=== PATIENT | female | born 1990 | race Hispanic/Latino ===

== ENCOUNTER 2018-06-10 23:15 | Emergency (ER) | payer MEDICAID ==
[2018-06-11] MEDS ORDERED: ATIVAN ONE (02:49)
[2018-06-11] MEDS ORDERED: ATIVAN PO ONE (02:55)
[2018-06-11] MEDS ORDERED: NORMODYNE IV ONE (02:56)
[2018-06-11] MEDS ORDERED: INDERAL PO ONE (02:57)
--- NOTE | 2018-06-11 03:05 | Emergency Department Report ---
HPI - General Chief Complaint: Abdominal Pain Time Seen by Provider: 06/11/18 02:52 - HPI HPI: The patient is a 27-year-old female presents for evaluation of abdominal pain and vaginal discharge. The patient reports 1 day of crampy in quality lower abdominal pain, mild in severity, exacerbated of urination, and associated with thick white vaginal discharge and dysuria. The patient denies fever, chills, night sweats, diarrhea, blood in the stool, dark tarry stool, dysuria, hematuria , flank pain, inability to pass flatus. ED Past Medical Hx - Past Medical History Previous Medical History?: No Additional medical history: denies - Surgical History Past Surgical History?: No Additional Surgical History: denies - Social History Smoking Status: Heavy Tobacco Smoker Substance Use Type: Alcohol - Medications Home Medications: Home Medications Medication Instructions Recorded Confirmed Last Taken Type HYDROcodone/APAP 5-325 [[place] 1 each PO Q6HR PRN #10 tablet 05/01/14 06/11/18 Unknown Rx 5/325 mg] Cephalexin [Keflex] 500 mg PO Q6HR #20 capsule 06/11/18 Unknown Rx Fluconazole [Diflucan TAB] 150 mg PO ONCE #1 tablet 06/11/18 Unknown Rx Miconazole/Cleanser 17 On [place]ipe 1 each VG QDAY #1 kit 06/11/18 Unknown Rx [Monistat 3 Combo Pack] metroNIDAZOLE [Flagyl] 500 mg PO Q12HR #14 tab 06/11/18 Unknown Rx ED Review of Systems ROS: Stated complaint: PAINFUL URINATION Other details as noted in HPI Constitutional: denies: fever ENT: denies: throat or neck pain Respiratory: denies: cough, shortness of breath Cardiovascular: denies: chest pain Endocrine: denies unexplained weight loss or gain Gastrointestinal: reports abdominal pain, nausea Genitourinary: reports vd and: dysuria Musculoskeletal: denies: leg swelling Skin: denies: rash Neurological: denies: headache Hematological/Lymphatic: denies: easy bleeding or easy bruising Psych: denies sadness or hopelessness Physical Exam - Physical Exam Vital Signs: Vital Signs 06/11/18 06/11/18 00:57 03:02 Temperature 98.9 F 97.2 F L Pulse Rate 111 H 98 H Respiratory 18 18 Rate Blood Pressure 152/95 Blood Pressure 114/82 [Left] O2 Sat by Pulse 95 97 Oximetry Physical Exam: General: well-nourished, well-developed, no acute distress Head: Normocephalic, atraumatic Eyes: normal sclera ENT: Mucous membranes are pale and dry Neck: trachea midline, neck supple, No neck stiffness, no cervical adenopathy Respiratory: Breath sounds equal bilaterally, no wheezing, rales, or rhonchi Cardio: S1 and S2 present, no murmurs, rubs, gallops, capillary refill is delayed Abdomen: Normoactive bowel sounds, soft abdomen, suprapubic tenderness to palpation present, no rigidity, no guarding or rebound tenderness Musc: No pitting edema Skin: No rash Neuro: Alert oriented 3, normal cognition, no facial drooping, normal speech Psych: Stat affect, depressed mood, poor insight, paranoid, although no suicidal or homicidal ideations, no hallucinations ED Course Vital Signs 06/11/18 06/11/18 00:57 03:02 Temperature 98.9 F 97.2 F L Pulse Rate 111 H 98 H Respiratory 18 18 Rate Blood Pressure 152/95 Blood Pressure 114/82 [Left] O2 Sat by Pulse 95 97 Oximetry ED Medical Decision Making - Lab Data Result diagrams: 06/11/18 03:02 06/11/18 03:02 - Medical Decision Making The patient was seen and examined by myself. The patient is placed on a cardiac technician and continuous pulse ox. On initial evaluation, the patient was found to be in no distress. Evaluation orders are placed. IV access is established and the patient is given 1 L normal saline fluid bolus and Zofran for nausea, and pain medicine. Lab results reveal elevated urine WBC with positive leukocyte esterase, concerning for acute urinary tract infection, and otherwise lab were non-concerning including WBC, hemoglobin, hematocrit, electrolytes, renal function, LFTs, lipase, and negative test. The patient is given Keflex for treatment of UTI. The patient declined pelvic exam per requested treatment for vaginitis. The patient given prescriptions for vaginitis. Mental health evaluated the patient agreed that the patient was negative for signs or symptoms concerning for acute risk of harm to herself or others, or signs or symptoms meaning criteria for psychosis diagnosis. The patient was reevaluated and reported that their symptoms were markedly improved. The patient is stable for discharge with outpatient follow-up. The patient is given follow-up and return instructions. The patient expressed understanding and agreed with the plan. The patient is discharged in stable condition. Critical care attestation.: If time is entered above; I have spent that time in minutes in the direct care of this critically ill patient, excluding procedure time. ED Disposition Clinical Impression: Dehydration, Acute suprapubic pain, Acute lower UTI (urinary tract infection) Vaginitis Qualifiers: Chronicity: acute Qualified Code(s): N76.0 - Acute vaginitis Disposition: TO HOME OR SELFCARE Is pt being admited?: No Does the pt Need Aspirin: No Condition: Stable Instructions: Vaginitis (ED), Vulvovaginal Candidiasis (ED), Dehydration (ED), Abdominal Pain (ED) Additional Instructions: Your blood work today revealed normal tests of your liver function, and the results were negative for sign of Hepatitis Referrals: PRIMARY CAREMD [Primary Care Provider] - 3-5 Days [facility] [Outside] - 3-5 Days BERNIE FORD MD [Staff Physician] - 3-5 Days Time of Disposition: 03:05
[2018-06-11 03:23] LABS: Basophils # (Auto) 0.1 K/mm3 (0.0-0.1); Basophils % (Auto) 0.9 % (0.0-1.8); Eosinophils # (Auto) 0.1 K/mm3 (0.0-0.4); Eosinophils % (Auto) 1.5 % (0.0-4.3); Hematocrit 39.2 % (30.3-42.9); Hemoglobin 13.1 gm/dl (10.1-14.3); Lymphocytes # (Auto) 2.6 K/mm3 (1.2-5.4); Mean Corpuscular HGB Conc 33 % (30-34); Mean Corpuscular Hemoglobin 30 pg (28-32); Mean Corpuscular Volume 89 fl (79-97); Monocytes # (Auto) 0.6 K/mm3 (0.0-0.8); Monocytes % (Auto) 7.9 % (0.0-7.3); Platelet Count 283 K/mm3 (140-440); Red Blood Count 4.42 M/mm3 (3.65-5.03); Red Cell Distribution Width 13.6 % (13.2-15.2)
[2018-06-11] MEDS ORDERED: NACL 0.9% 1000 ML 1,000 ML ONE (03:57)
[2018-06-11] MEDS ORDERED: NACL 0.9% 1000 ML 1,000 ML IV ONE (03:59)
[2018-06-11 04:03] LABS: Alanine Aminotransferase 25 units/L (7-56); Albumin 4.7 g/dL (3.9-5); BUN/Creatinine Ratio 19; Blood Urea Nitrogen 17 mg/dL (7-17); Calcium 9.7 mg/dL (8.4-10.2); Hemolysis Index 1
[2018-06-11] MEDS ORDERED: ATIVAN IV ONE (04:10)
[2018-06-11 04:28] LABS: Bilirubin,Urine NEG (Negative); Blood,Urine LG (Negative); Color,Urine Yellow (Yellow); Mucus,Urine 3+ /HPF; Urobilinogen,Urine < 2.0 mg/dL (<2.0)
[2018-06-11 04:37] LABS: RBC,Urine > 182.0 /HPF (0.0-6.0)
[2018-06-11 04:38] LABS: HCG Qualitative,Urine Negative (Negative)
[2018-06-11 04:47] LABS: Benzodiazepines Screen,Urine PRESUMPTIVE NEGATIVE; Cocaine Screen,Urine PRESUMPTIVE NEGATIVE; Methadone Screen,Urine PRESUMPTIVE NEGATIVE; Opiate Screen,Urine PRESUMPTIVE NEGATIVE
[2018-06-11] MEDS ORDERED: KEFLEX PO ONE (05:24)
[2018-06-11 06:18] LABS: Amphetamine Screen,Urine PRESUMPTIVE POSITIVE; Cannabinoid Screen,Urine PRESUMPTIVE POSITIVE
[2018-06-11 06:43] VITALS: BP 103/70
== END 2018-06-11 06:42 | disposition home or self-care (01) ==
LOC: ED 23:15 → EEVIPCON 23:15 → ED 06-11 06:42
DX: N76.0 Acute vaginitis (principal); N39.0 Urinary tract infection, site not specified; E86.0 Dehydration; E03.9 Hypothyroidism, unspecified; Z72.0 Tobacco use
CPT/HCPCS: 36415; 80053; 80307; 81001; 81025; 84439; 84443; 84703; 85025; 96361; 96374; 99283; G0480; J7030; 80320

== ENCOUNTER 2019-01-28 22:50 | Emergency (ER) | payer MEDICAID ==
[2019-01-28] MEDS ORDERED: NACL 0.9% 1000 ML 1,000 ML IV ONE (23:00)
--- NOTE | 2019-01-28 23:36 | Emergency Department Report ---
HPI - General Chief Complaint: Psych Time Seen by Provider: 01/28/19 22:58 - HPI HPI: 28-year-old female presents to the emergency department via EMS after the patient attempted suicide by drinking [employer] powder with boric acid. The patient's significant other is also being seen in this emergency department. There is a [facility] security police officer at bedside who, along with EMS, is providing most of the history and information prior to arrival. At some point this evening, the patient's boyfriend became unresponsive. When this happened, allegedly the patient started acting abnormal and was seen going into the laundry room and coming out with this Connor killer, adding water to it, and drinking. She had 1-2 episodes of nausea and vomiting in route but otherwise was mostly unresponsive. The patient has a history of schizophrenia. She was seen here in August of last year when she tried to kill herself by ingesting antifreeze. The patient also apparently has some history of substance abuse. At some point she told EMS that she would take or use "anything I can get my hands on." ED Past Medical Hx - Past Medical History Hx Psychiatric Treatment: Yes (schizophrenia) Additional medical history: denies - Surgical History Additional Surgical History: denies - Social History Smoking Status: Unknown if ever smoked Substance Use Type: Methamphetamines - Medications Home Medications: Home Medications Medication Instructions Recorded Confirmed Last Taken Type HYDROcodone/APAP 5-325 [[place] 1 each PO Q6HR PRN #10 tablet 05/01/14 09/06/18 Unknown Rx 5-325 mg TAB] Fluconazole [Diflucan TAB] 150 mg PO ONCE #1 tablet 06/11/18 09/06/18 Unknown Rx Miconazole/Cleanser 17 On [place] 1 each VG QDAY #1 kit 06/11/18 09/06/18 Unknown Rx [Monistat 3 Combo Pack] metroNIDAZOLE [Flagyl TAB] 500 mg PO Q12HR #14 tab 06/11/18 09/06/18 Unknown Rx Sertraline [Zoloft] 50 mg PO HS #14 tablet 09/11/18 Unknown Rx risperiDONE [RisperDAL] 2 mg PO HS #14 tablet 09/11/18 Unknown Rx ED Review of Systems ROS: Stated complaint: MH EVAL/SUICIDE ATTEMPT/POSS OD Other details as noted in HPI Comment: Unobtainable due to pts medical conditions Physical Exam - Physical Exam Vital Signs: Vital Signs 01/28/19 01/28/19 01/28/19 22:51 22:52 23:16 Temperature 98.1 F Pulse Rate 83 84 75 Respiratory 25 H 19 26 H Rate Blood Pressure 135/90 135/90 Blood Pressure 135/90 [Right] O2 Sat by Pulse 100 100 100 Oximetry Physical Exam: GENERAL: The patient is well-developed well-nourished. HEENT: Normocephalic. Atraumatic. Patient has moist mucous membranes. EYES: Pupils are equal and reactive to light bilaterally. NECK: Supple. Trachea is midline. CHEST/LUNGS: Clear to auscultation. There is no respiratory distress noted. HEART/CARDIOVASCULAR: Regular. There is no tachycardia. There is no obvious murmur. ABDOMEN: Abdomen is soft, nontender. Patient has normal bowel sounds. There is no abdominal distention. SKIN: Skin is warm and dry. NEURO: Patient is sleeping but does appear arousable. She will open her eyes to tactile stimulation. Positive gag reflex. Withdraws from painful stimuli. MUSCULOSKELETAL: There is no tenderness or deformity. There is no evidence of acute injury. ED Course Vital Signs 01/28/19 01/28/19 01/28/19 22:51 22:52 23:16 Temperature 98.1 F Pulse Rate 83 84 75 Respiratory 25 H 19 26 H Rate Blood Pressure 135/90 135/90 Blood Pressure 135/90 [Right] O2 Sat by Pulse 100 100 100 Oximetry - Reevaluation(s) Reevaluation #1: 01/29/19 01:12 The patient is now awake but hallucinating and agitated. She took off running from bed 1 or towards the back of the emergency department. The patient was seen talking to herself and having some visual hallucinations of someone in the room that she says was trying to harm her. The patient then laid down on the ground just inside of room 17 and would not get up and could not be redirected. I spoke again with poison control who says that hallucinations, paranoia, delusions, should not be a side effect of the ingestion. Therefore, the patient is most likely having an exacerbation of her schizophrenia. - Consultations Consultation #1: 01/28/19 23:35 I spoke with poison control regarding this patient's ingestion. They recommended the normal labs, EKG, monitoring and mostly supportive care. They said that the boric acid can potentially cause electrolyte abnormalities, localized tissue damage, seizures, kidney failure, nausea and vomiting. ED Medical Decision Making - Lab Data Result diagrams: 01/28/19 23:40 01/28/19 23:40 - EKG Data -: EKG Interpreted by Me EKG shows normal: sinus rhythm, axis, intervals, QRS complexes, ST-T waves Rate: normal - EKG Data When compared to previous EKG there are: previous EKG unavailable Interpretation: normal EKG - Medical Decision Making This patient presents to the emergency department with a suicide attempt by ingestion of bug/connor. It is unknown whether the patient truly ingested this or if she vomited some of it up after attempting to ingested, but she definitively told people that she wanted to kill herself. She also has a history of suicidal ideations and attempts in the past. At first patient presents sleepy and lethargic but arousable. A little while into her ED evaluation, the patient became much more awake and started hallucinating, running around the emergency department. At this time, however, the patient is resting comfortably in her room. Patient's labs were mostly unremarkable except for hypokalemia with a potassium of 2.9, a mild urinary tract infection, and a urine drug screen positive for amphetamines and marijuana. I spoke to the poison control multiple times and says that she needs to be monitored for about 4-6 hours after ingestion. She has been given some oral and IV potassium, IV Rocephin. We will recheck the potassium level later in the morning and if it has come back up to a reasonable level, and the patient does not have any signs of complications from her ingestion, the patient will be considered medically cleared at that time. Critical Care Time: No Critical care attestation.: If time is entered above; I have spent that time in minutes in the direct care of this critically ill patient, excluding procedure time. ED Disposition Clinical Impression: Suicidal ideation, Hypokalemia Ingestion of caustic substance Qualifiers: Encounter type: initial encounter Injury intent: intentional self-harm Qualified Code(s): T54.92XA - Toxic effect of unspecified corrosive substance, intentional self-harm, initial encounter Schizophrenia Qualifiers: Schizophrenia type: unspecified Qualified Code(s): F20.9 - Schizophrenia, unspecified UTI (urinary tract infection) Qualifiers: Urinary tract infection type: acute cystitis Hematuria presence: without hematuria Qualified Code(s): N30.00 - Acute cystitis without hematuria Disposition: [id number]/[id number] PSY HOSP/PSY UNIT Is pt being admited?: No Condition: Stable Referrals: PRIMARY CARE, [Primary Care Provider] - 3-5 Days Time of Disposition: 02:01
[2019-01-28 23:48] LABS: Benzodiazepines Screen,Urine PRESUMPTIVE NEGATIVE; Cocaine Screen,Urine PRESUMPTIVE NEGATIVE; Methadone Screen,Urine PRESUMPTIVE NEGATIVE; Opiate Screen,Urine PRESUMPTIVE NEGATIVE
[2019-01-28 23:49] LABS: Bilirubin,Urine NEG (Negative); Blood,Urine NEG (Negative); Color,Urine Yellow (Yellow); Mucus,Urine 3+ /HPF; Protein,Urine <15 mg/dL mg/dL (Negative)
[2019-01-28] MEDS ORDERED: ROCEPHIN/NS 1 GM/50 ML 1 GM/50 ML BAG IV ONE (23:59)
[2019-01-29] LABS: Basophils % (Auto) 0.5 % (0.0-1.8); Eosinophils # (Auto) 0.1 K/mm3 (0.0-0.4); Eosinophils % (Auto) 0.8 % (0.0-4.3); Hematocrit 36.8 % (30.3-42.9); Hemoglobin 12.8 gm/dl (10.1-14.3); Lymphocytes # (Auto) 2.9 K/mm3 (1.2-5.4); Lymphocytes % (Auto) 33.9 % (13.4-35.0); Mean Corpuscular HGB Conc 35 % (30-34); Mean Corpuscular Volume 89 fl (79-97); Monocytes # (Auto) 0.5 K/mm3 (0.0-0.8); Monocytes % (Auto) 5.5 % (0.0-7.3); Platelet Count 382 K/mm3 (140-440); Red Blood Count 4.15 M/mm3 (3.65-5.03); Red Cell Distribution Width 13.7 % (13.2-15.2)
[2019-01-29 00:06] LABS: Amphetamine Screen,Urine PRESUMPTIVE POSITIVE; Cannabinoid Screen,Urine PRESUMPTIVE POSITIVE
[2019-01-29 00:26] LABS: Alanine Aminotransferase 20 units/L (7-56); Albumin 4.4 g/dL (3.9-5); BUN/Creatinine Ratio 23; Blood Urea Nitrogen 18 mg/dL (7-17); Calcium 9.3 mg/dL (8.4-10.2); Hemolysis Index 3
[2019-01-29] MEDS ORDERED: K-DUR PO ONE (00:36)
[2019-01-29] MEDS ORDERED: HYDROGEN PEROXIDE ONE (01:03)
--- NOTE | 2019-01-29 02:34 | XRay Report ---
PROCEDURE: XR CHEST 1V AP TECHNIQUE: Chest radiograph single view. HISTORY: Medical Clearance Psych COMPARISONS: None . FINDINGS: Heart: Normal. Mediastinum/Vessels: Normal. Lungs/Pleural space: Normal. Bony thorax: No acute osseous abnormality. Life support devices: None. IMPRESSION: No acute cardiopulmonary abnormality. This document is electronically signed by Alfred Blas MD., January 29 2019 02:32:52 AM ET
[2019-01-29] MEDS: KCL 10MEQ/100ML 10 MEQ/100 ML BAG IV SCH ×2 (02:57→07:02)
[2019-01-29] MEDS ORDERED: MACROBID PO SCH (10:00)
[2019-01-29 10:37] VITALS: BP 136/94
== END 2019-01-29 13:28 ==
LOC: ED 22:50 → EEVIPCON 22:50 → ED 01-29 13:28
DX: T54.92XA Toxic effect of unspecified corrosive substance, intentional self-harm, initial encounter (principal); R11.2 Nausea with vomiting, unspecified; E87.6 Hypokalemia; F20.9 Schizophrenia, unspecified; N30.00 Acute cystitis without hematuria; X58.XXXA Exposure to other specified factors, initial encounter; Y93.89 Activity, other specified; Y92.89 Other specified places as the place of occurrence of the external cause; Y99.8 Other external cause status
CPT/HCPCS: 36415; 71045; 80053; 80307; 81001; 82140; 82805; 83735; 84132; 84703; 85025; 93005; 93010; 96365; 99285; G0480; J0696; J3480; J7030; 80320